=== PATIENT | male | born 1965 | race Caucasian/White ===

== ENCOUNTER → 2017-11-25 20:13 | Outpatient (CLI) | payer OTHER, SELFPAY | PROVIDERS: PCP Family Medicine; Visit Provider Nurse Practitioner Family | DX: G47.33 Obstructive sleep apnea (adult) (pediatric) (principal); I10 Essential (primary) hypertension; R06.83 Snoring | CPT/HCPCS: 95810 ==

== ENCOUNTER → 2020-02-06 08:33 | Outpatient (POV) | payer OTHER, SELFPAY | PROVIDERS: Visit Provider Dermatology | DX: Z00.00 Encounter for general adult medical examination without abnormal findings (principal) ==

== ENCOUNTER → 2020-09-30 14:45 | Outpatient (CLI) | payer OTHER, SELFPAY ==
[2020-09-30 16:10] LABS: Coronavirus 19 IgG Antibody Negative (Negative); Coronavirus 19 IgM Antibody Negative (Negative)
== END ==
PROVIDERS: Visit Provider Surgery
DX: Z11.52 Encounter for screening for COVID-19; Z12.11 Encounter for screening for malignant neoplasm of colon; Z01.818 Encounter for other preprocedural examination
CPT/HCPCS: 36415; 86328

== ENCOUNTER 2020-10-02 09:17 | Day surgery (SDC) | payer OTHER, SELFPAY ==
[2020-10-01 09:57] VITALS: BMI 31.8
[2020-10-02 10:01] VITALS: BP 136/78; PULSE 76; RESP 16; TEMP 36.4; O2SAT 97
--- NOTE | 2020-10-02 10:19 | HMH.ANESCL ---
[facility] Anesthesia Checklist - Patient Identification Patient Identification: Arm Band - Structural Data Admitted From: Home Planned Operative Procedure/s: colonoscopy Consent for Planned Operative Procedure(s) Verified: Yes Verified Documents: Surgical Consent, History and Physical - NPO Status Verified Time NPO: 00:00 - Additional verifications Anesthesia Reactions: No - Airway Assessment C-Spine Mobility Assessed: Yes (mp2) TMJ Mobility Assessed: Yes Dentition: Good Dentition - Neurological Assessment Level of Consciousness: Awake, Alert - Anesthesia Plan Anesthesia Risk discussed: Yes Anesthesia Plan: Verified ASA Class: II Anesthesia Type: MAC [facility] History I have reviewed the patient's past medical history: Yes Medical History: Reports:: Gastroesophageal Reflux Disease(GERD), Hyperlipidemia, Hypertension Denies:: Cancer, Diabetes Mellitus Type 1, Diabetes Mellitus Type 2, Internal Pacemaker, Lung Disease, MRSA, Seizures *Have you ever received a pneumonia vaccine?: No *Have you received a flu vaccine this season?: Yes Anesthesia experience/problems:: nac Laterality Cases: Bilateral: Tonsillectomy Other Surgeries: Yes: Colonoscopy, EGD. No: Pacemaker Amputation: No - *Social History Last grade of school completed: Some college Smoking Status: Current every day smoker Tobacco Type: cigarettes # Packs/Day (cigarettes): 1 #Yrs smoked (if former smoker): 36 Alcohol Intake: current Alcohol Intake Frequency:: a few times a week Substance Use Type: denies use *Occupational Status:: employed Housing: house Household Members: none *Travel in the last 8 weeks: None Family Hx:: Hypertension, Hyperlipidemia, Stroke, Heart Attack
[2020-10-02 10:21] VITALS: O2SAT 97
[2020-10-02 11:00] VITALS: BP 139/87; PULSE 92; RESP 18; TEMP 36.6; O2SAT 90
--- NOTE | 2020-10-02 11:01 | P.PCN_ITS ---
- Procedure: Date: 10/02/20 Patient Date of :: 1965 Procedure Performed:: Total colonoscopy with biopsies and polypectomy Indications:: Patient presents for colonoscopy. He has had about 6 or 7 colonoscopies in the past. I had performed colonoscopy on 12/21/2017. He had a tubular adenoma in the transverse colon, sessile serrated adenoma in the cecum, and several rectosigmoid hyperplastic polyps. I had recommended a 3-year follow-up colonoscopy. He states that over the past 8 months he has had some change in his bowel habits. He states that he has to take a stool softener and laxative every evening to keep his bowels regular. He has had some pain when his bowels do not move. Performing Provider:: Wei Saldivar MD Referring Provider:: Remy Huddleston MD Sedation:: MAC sedation Procedure:: Patient was taken to endoscopy procedure room. He was positioned in a lateral decubitus position. Adequate intravenous sedation was achieved with anesthesia titration of propofol. Variable stiffness Olympus colonoscope was inserted via the anus and advanced to the cecum with only minimal difficulty due to some floppiness and redundancy of the sigmoid colon. Ileocecal valve and appendiceal orifice were clearly identified. He did have some findings of diffuse mucosal erythema which may be mild colitis versus possible melanosis coli. Multiple random right and left colon biopsies were obtained using cold biopsy forceps. He did have some diverticulosis of the left colon. In the sigmoid colon there was a tiny diminutive polyp and attempt was made to remove this with cold cutting snare. However it was a small it was removed in its entirety with cold biopsy forceps. Retroflexion within the rectum revealed no evidence of any pat hologic internal hemorrhoids. Colonoscope was withdrawn. Findings:: Possible melanosis coli Mild diverticulosis Diminutive sigmoid polyp Recommendations:: Change in bowel habits likely functional/dietary. Likely repeat colonoscopy 5 years. Complications:: None immediately apparent Estimated blood obtained (mL): 2
[2020-10-02 11:10] VITALS: BP 116/70; PULSE 80; RESP 18; TEMP 36.6; O2SAT 91
[2020-10-02 11:20] VITALS: BP 119/75; PULSE 66; RESP 18; TEMP 36.6; O2SAT 95
[2020-10-02 11:37] VITALS: BP 119/86; PULSE 65; RESP 18; TEMP 36.6; O2SAT 95
== END 2020-10-02 11:38 | disposition home or self-care (01) ==
LOC: OUTP 09:18
PROVIDERS: PCP Family Medicine; Visit Provider Surgery
PROC: 0DJD8ZZ Inspection of Lower Intestinal Tract, Via Natural or Artificial Opening Endoscopic (ICD-10-PCS; CPT 45380; principal; 2020-10-02 10:30)
DX: Z12.11 Encounter for screening for malignant neoplasm of colon (principal); Z86.010 Personal history of colon polyps; K63.89 Other specified diseases of intestine; K57.30 Diverticulosis of large intestine without perforation or abscess without bleeding; K63.5 Polyp of colon; Z87.19 Personal history of other diseases of the digestive system; K21.9 Gastro-esophageal reflux disease without esophagitis; E78.5 Hyperlipidemia, unspecified; I10 Essential (primary) hypertension; Z72.0 Tobacco use; Z82.3 Family history of stroke; Z82.49 Family history of ischemic heart disease and other diseases of the circulatory system
CPT/HCPCS: 45380

== ENCOUNTER 2021-10-04 12:24 | Emergency (ER) | payer OTHER, SELFPAY ==
--- NOTE | 2021-10-04 12:23 | ECG_ITS ---
APPROVED REPORT Exam: Resting ECG HR:75 bpm ECG Measurements Heart Rate 75 AXES KS 177 P 63 QRSd 103 QRS 58 QT 381 T 38 QTc 410 Conclusion SINUS RHYTHM NORMAL ECG UNCONFIRMED REPORT Electronically signed by : Fran Contreras MD 10/08/2021 10:15:43
[2021-10-04 12:25] VITALS: BP 123/79; PULSE 77; RESP 14; TEMP 36.7; O2SAT 98; BMI 34.5
--- NOTE | 2021-10-04 12:26 | HMH.EDGENADL ---
ED Disposition Clinical Impression: Palpitations, Dyspnea on exertion, Atypical chest pain Anemia Qualifiers: Anemia type: unspecified type Qualified Code(s): D64.9 - Anemia, unspecified Disposition: Home, Self-Care Condition on Discharge: Good Instructions: DI for Atypical Chest Pain, DI for Iron Deficiency Anemia-Adult Additional Instructions: Follow-up with the [place] [facility] with your primary care provider next week as scheduled. You were found to be anemic, hemoglobin 9.3. Follow-up with your primary care provider for your anemia as well as your symptoms of pounding heart, shortness of breath, chest discomfort. Return to the emergency department if any of the symptoms worsen. Additional instructions for CHEST PAIN: See your physician as soon as possible for further evaluation. Return immediately if worsening chest pain, vomiting, shortness of breath, fever, coughing of blood. Referrals: Provider,Referral, [Primary Care Provider] - - Critical Care Critical Care Time: No Attestation: On , the high probability of a clinically significant, sudden or life threatening deterioration of the following system(s) required my full and direct attention, intervention and personal management. The time I documented below is in addition to time spent performing reported procedures but includes the following listed in this critical care notation. Medical Decision Making - Bro Inquiry Pt receiving controlled substance: No Vital Signs: 10/04/21 12:25 Temperature 98.1 F Temperature Source Oral Pulse Rate [Right Radial] 77 Respiratory Rate 14 Blood Pressure [Right Arm] 123/79 Blood Pressure Mean [Right Arm] 93 Blood Pressure Source [Right Arm] Automatic Cuff Blood Pressure Position [Right Arm] Sitting 02 Sat by Pulse Oximetry 98 Oxygen Delivery Method Room Air - Lab Data Lab Results 10/04/21 12:27: WBC 4.7 L, RBC 3.34 L, Hgb 9.3 L, Hct 29.5 L, MCV 88.3, MCH 27.7, MCHC 31.4 L, RDW 13.4, Plt Count 373, MPV 9.5, Neut % (Auto) 49.5, Lymph % (Auto) 35.1, Dodge % (Auto) 6.5, Eos % (Auto) 6.8, Baso % (Auto) 2.2 H, Neut # (Auto) 2.3, Lymph # (Auto) 1.6, Dodge # (Auto) 0.3, Eos # (Auto) 0.3, Baso # (Auto) 0.1 10/04/21 12:27: Sodium 136, Potassium 3.6, Chloride 102, Carbon Dioxide 28, Anion Gap 9.6, BUN 10, Creatinine 0.80, Estimated Creat Clear 169, Estimated GFR 100, Est GFR ( Amer) 121, Glucose 110 H, Calcium 8.4, Troponin I < 0.01 Result diagrams: 10/04/21 12:27 10/04/21 12:27 Orders (Tests/Meds): ED MEDICATIONS Generic Name Dose Route Start Last Admin Trade Name Freq PRN Reason Stop Dose Admin Sodium Chloride 10 ml 10/04/21 12:30 Sodium Chloride 0.9% 10ml Flush Syringe IV 11/03/21 12:29 NEEDED PRN Maintain IV Site Discontinued Medications Generic Name Dose Route Start Last Admin Trade Name Freq PRN Reason Stop Dose Admin Aspirin 324 mg 10/04/21 12:31 10/04/21 12:33 Aspirin 81mg Chewable Tablet PO 10/04/21 12:32 324 mg ONCE ONE Administration ORDERS Category Date Time Status Troponin I Q3H Lab 10/04/21 15:30 Ordered Troponin I Q3H Lab 10/04/21 18:30 Ordered - Radiology Data #1 Image(s): Chest Image Reviewed: Yes I reviewed the patient's radiology image, Yes I have reviewed radiologist's interpretation Preliminary Findings: Normal/NAD PROCEDURE INFORMATION: Exam: XR Chest Exam date and time: 10/04/2021 12:41 PM Age: 56 years old Clinical indication: Chest wall pain; Additional info: Cp TECHNIQUE: Imaging protocol: XR of the chest. Views: 1 view. COMPARISON: CR CS5 CERVICAL SPINE 4 OR 5 VIEWS 12/31/2015 10:33 AM FINDINGS: Lungs: No consolidation. Pleural spaces: No pleural effusion. No pneumothorax. Heart/Mediastinum: No cardiomegaly. Bones/joints: There are some degenerative changes of the spine and shoulders. IMPRESSION: No evidence of active pulmonary disease. Electronically signed by Myles Villela
--- NOTE | 2021-10-04 12:26 | PC.NURSE ---
ARTHUR Clemente at BS
--- NOTE | 2021-10-04 12:28 | PC.NURSE ---
Call light given to patient; he has no needs at this time; Family at BS
--- NOTE | 2021-10-04 12:30 | XR_ITS ---
PROCEDURE INFORMATION: Exam: XR Chest Exam date and time: 10/04/2021 12:41 PM Age: 56 years old Clinical indication: Chest wall pain; Additional info: Cp TECHNIQUE: Imaging protocol: XR of the chest. Views: 1 view. COMPARISON: CR CS5 CERVICAL SPINE 4 OR 5 VIEWS 12/31/2015 10:33 AM FINDINGS: Lungs: No consolidation. Pleural spaces: No pleural effusion. No pneumothorax. Heart/Mediastinum: No cardiomegaly. Bones/joints: There are some degenerative changes of the spine and shoulders. IMPRESSION: No evidence of active pulmonary disease.
[2021-10-04 12:38] LABS: Basophils # 0.1 K/mm3 (0-0.2); Basophils % 2.2 % (0.1-2.0); Eosinophils # 0.3 K/mm3 (0.0-0.4); Eosinophils % 6.8 % (0.1-12.0); Hematocrit 29.5 % (42.0-52.0); Hemoglobin 9.3 g/dL (14.1-18.0); Lymphocytes # 1.6 K/mm3 (0.7-4.5); Lymphocytes % 35.1 % (10-50); Mean Corpuscular HGB Conc 31.4 g/dL (31.8-35.4); Mean Corpuscular Hemoglobin 27.7 pg (27.0-31.2); Mean Corpuscular Volume 88.3 fl (80-94); Mean Platelet Volume 9.5 fl (7.4-10.4); Monocytes # 0.3 K/mm3 (0.1-1.0); Monocytes % 6.5 % (1.7-9.3); Neutrophils # 2.3 K/mm3 (1.8-7.8); Neutrophils % 49.5 % (37.0-80.0); Platelet Count 373 K/mm3 (142-424); Red Blood Count 3.34 M/mm3 (4.60-6.20); Red Cell Distribution Width 13.4 % (11.5-17.5); White Blood Count 4.7 K/mm3 (4.8-10.8)
[2021-10-04 12:40] LABS: Chloride 102 mmol/L (98-107); Potassium 3.6 mmoL/L (3.5-5.1); Sodium 136 mmol/L (136-145)
[2021-10-04 12:43] LABS: Blood Urea Nitrogen 10 mg/dl (9-20); Creatinine Clearance Estimated 169 mL/min (50-200); Estimated Glomerular Filt Rate 100 ml/min (>60); GFR (African American) 121 ML/MIN (>60)
--- NOTE | 2021-10-04 12:43 | PC.NURSE ---
radiology is bedside.
[2021-10-04 12:44] LABS: Anion Gap 9.6 mEq/L (5-15); Calcium 8.4 mg/dl (8.4-10.2); Carbon Dioxide 28 mmol/L (22.0-30.0); Glucose 110 mg/dl (74-100)
[2021-10-04 12:56] LABS: Troponin I < 0.01 ng/ml (0.00-0.034)
[2021-10-04 13:01] VITALS: BP 115/70; PULSE 73; RESP 19; O2SAT 97
--- NOTE | 2021-10-04 13:23 | PC.NURSE ---
patient's is bedside. Patient is resting in bed. nothing needed at this time. call light within reach.
[2021-10-04 13:30] VITALS: BP 125/86; PULSE 75; RESP 20; O2SAT 97
[2021-10-04 13:50] VITALS: BP 121/76; PULSE 81; RESP 15; TEMP 36.8; O2SAT 99
== END 2021-10-04 13:50 | disposition home or self-care (01) ==
PROVIDERS: Emergency Provider Emergency Medicine
DX: R00.2 Palpitations (principal); R07.89 Other chest pain; R06.09 Other forms of dyspnea; D64.9 Anemia, unspecified; I10 Essential (primary) hypertension; E78.5 Hyperlipidemia, unspecified; K21.9 Gastro-esophageal reflux disease without esophagitis; F17.210 Nicotine dependence, cigarettes, uncomplicated; Z79.899 Other long term (current) drug therapy
CPT/HCPCS: 71045; 80048; 84484; 85025; 93005; 99283